=== PATIENT | female | born 2000 | race Caucasian/White ===

== ENCOUNTER 2022-02-02 07:57 | Outpatient (CLI) | payer OTHER, SELFPAY ==
--- NOTE | ~2022-02-02 | US_ITS ---
EXAMINATION: US abdomen limited DATE: 02/02/2022 08:30 INDICATION: RUQ pain TECHNIQUE: Multiple grayscale and Doppler ultrasound images of limited portions of the abdomen were o btained. COMPARISON: None available. FINDINGS: Obscured by bowel gas The liver is normal with normal echogenicity and echotexture. No surf nichole nodularity. Normal hepatopetal flow in the main portal vein. The gallbladder is normal with no ab normal wall thickening, pericholecystic fluid or stones. The common bile duct measures 3 mm. There wa s no sonographic Falk sign. IMPRESSION: Pancreas not well visualized. Positive sonographic Falk sign with otherwise normal gallbladder find ings. Reviewed, dictated and finalized at location K. [employer] IMPRESSION: Pancreas not well visualized. Positive sonographic Falk sign with otherwise n ormal gallbladder findings.
== END 2022-02-02 07:58 ==
PROVIDERS: PCP Family Medicine
DX: R10.11 Right upper quadrant pain (principal)
CPT/HCPCS: 76705

== ENCOUNTER → 2022-03-06 13:52 | Outpatient (CLI) | payer MEDICAID, SELFPAY ==
--- NOTE | ~2022-03-06 | CT_ITS ---
EXAMINATION: CT abdomen pelvis w con INDICATION: Lower abdominal pain TECHNIQUE: Computed tomographic images of the abdomen and pelvis were obtained after the administrati on of 100 cc of Omnipaque 350 intravenous contrast. The dose-length product (DLP) was 478.29 mGy-cm. Automated exposure control and iterative reconstruction technique were employed. COMPARISON: None available FINDINGS: The lung bases are clear. The heart size is normal. The liver is diffusely low in attenuati on when compared with the spleen, consistent with hepatic steatosis. The spleen, pancreas, gallbladde r, and adrenal glands are normal. The kidneys are unremarkable. No pathologically enlarged abdominal or pelvic lymph nodes are identified. There is no free intraperitoneal gas or evidence of bowel obstr uction. There is a moderate volume of colonic stool. Formed stool in the nondistended terminal ileum is consistent with slow transit. There is minimal circumferential wall thickening of the urinary blad david. There is an umbilical hernia containing fat. Also noted is a tiny supraumbilical midline ventral hernia containing fat. IMPRESSION: 1. Mild circumferential wall thickening of the urinary bladder which could reflect cystitis. Recommen d correlation with urinalysis. 2. Diffuse hepatic steatosis. Reviewed, dictated and finalized at location B. [employer] IMPRESSION: 1. Mild circumferential wall thickening of the urinary bladder which could refl ect cystitis. Recommend correlation with urinalysis. 2. Diffuse hepatic steatosis.
== END ==
PROVIDERS: PCP Family Medicine; Visit Provider Family Medicine
DX: R10.9 Unspecified abdominal pain (principal); K76.0 Fatty (change of) liver, not elsewhere classified
CPT/HCPCS: 74177; Q9967